=== PATIENT | male | born 1970 | race African-American/Black ===

== ENCOUNTER 2018-01-15 13:59 | Emergency (ER) | payer OTHER ==
[2018-01-15] MEDS ORDERED: PSEUDOEPHEDRINE HCL 3 MG/1 ML SYRUP 60 ML PO ONE (14:59)
[2018-01-15] MEDS ORDERED: MECLIZINE HCL 25 MG TABLET PO ONE (14:59)
--- NOTE | 2018-01-15 15:17 | ER Document Report ---
ED General - General Chief Complaint: Syncope Stated Complaint: LIGHT HEADED, DIZZY Time Seen by Provider: 01/15/18 14:31 Mode of Arrival: Ambulatory Information source: Patient Notes: 47-year-old male with hypothyroid, asthma presents via private vehicle from work after he became dizzy while bending forward. Patient states that he has had 3 episodes of dizziness which he describes as the room spinning anytime he bends forward. Patient states dizziness lasts approximately 10-20 seconds and resolves when seated. Dizziness is worse when laying on his right side. Denies any preceding shortness of breath, chest pain, palpitations. He does admit to recent upper respiratory infection, sinus congestion, ear fullness. Patient denies prior similar symptoms. Patient states that while at work today he bent forward to pick something up became dizzy stumbled and fell forward onto his hands and knees. He denies any loss of consciousness. TRAVEL OUTSIDE OF THE [place] IN LAST 30 DAYS: No - HPI Onset: Just prior to arrival Quality of pain: No pain Associated symptoms: Earache, Sinus pain/drainage. denies: Chest pain, Nonproductive cough, Productive cough, Nausea, Vomiting, Shortness of breath Exacerbated by: Other - Bending forward Relieved by: Remaining still Similar symptoms previously: No Recently seen / treated by doctor: No - Related Data Allergies/Adverse Reactions: No Known Allergies Allergy (Verified 01/15/18 14:00) Past Medical History - General Information source: Patient - Social History Smoking Status: Never Smoker Frequency of alcohol use: Occasional Drug Abuse: None Lives with: Spouse/Significant other Family History: Reviewed & Not Pertinent Patient has suicidal ideation: No Patient has homicidal ideation: No Pulmonary Medical History: Reports: Hx Asthma Renal/ Medical History: Denies: Hx Peritoneal Dialysis Review of Systems - Review of Systems Notes: REVIEW OF SYSTEMS: CONSTITUTIONAL : Denies fever, chills, or sweats. Denies recent illness. Denies weight loss, recent hospitalizations. EENT: Denies visula changes, eye pain. Denies sore throat, oral lesions, difficulty swallowing. CARDIOVASCULAR: Denies chest pain. Denies palpitations or racing or irregular heart beat. Denies lower extremity edema. RESPIRATORY: Denies cough, cold, or chest congestion. Denies shortness of breath, difficulty breathing, or wheezing. GASTROINTESTINAL: Denies abdominal pain or distention. Denies nausea, vomiting , or diarrhea. Denies blood in vomitus, stools, or per rectum. Denies black, tarry stools. Denies constipation. GENITOURINARY: Denies difficulty urinating, painful urination, burning, frequency, blood in urine, or vaginal discharge. MUSCULOSKELETAL: Denies back or neck pain or stiffness. Denies joint pain or swelling. SKIN: Denies rash, lesions or sores. HEMATOLOGIC : Denies easy bruising or bleeding. LYMPHATIC: Denies swollen, enlarged glands. NEUROLOGICAL: Denies confusion or altered mental status. Denies passing out or loss of consciousness. Denies headache. Denies weakness or paralysis or loss of use of either side. Denies problems with gait or speech. Denies sensory loss, numbness, or tingling. Denies seizures. PSYCHIATRIC: Denies anxiety or stress. Denies depression, suicidal ideation, or homicidal ideation. Physical Exam - Vital signs Vitals: Temp Pulse Resp BP Pulse Ox 98.2 F 83 16 141/78 H 98 01/15/18 14:14 01/15/18 14:14 01/15/18 14:14 01/15/18 14:14 01/15/18 14:14 - Notes Notes: PHYSICAL EXAMINATION: GENERAL: Well-appearing, well-nourished and in no acute distress. HEAD: Atraumatic, normocephalic. EYES: Pupils equal round and reactive to light, extraocular movements intact, sclera anicteric, conjunctiva are normal. Right sided nystagmus ENT: Nares patent, oropharynx clear without exudates. Moist mucous membranes. NECK: Normal range of motion, supple without lymphadenopathy LUNGS: Breath sounds clear to auscultation bilaterally and equal. No wheezes rales or rhonchi. HEART: Regular rate and rhythm without murmurs ABDOMEN: Soft, nontender, nondistended abdomen. No guarding, no rebound. No masses appreciated. Musculoskeletal: Normal range of motion, no pitting or edema. No cyanosis. NEUROLOGICAL: Cranial nerves grossly intact. Normal speech, normal gait. Normal sensory, motor exams PSYCH: Normal mood, normal affect. SKIN: Warm, Dry, normal turgor, no rashes or lesions noted. Course - Re-evaluation Re-evalutation: 01/15/18 15:19 47-year-old male with hypothyroid, asthma presents via private vehicle from work after he became dizzy while bending forward. Patient states that he has had 3 episodes of dizziness which he describes as the room spinning anytime he bends forward. Patient states dizziness lasts approximately 10-20 seconds and resolves when seated. Dizziness is worse when laying on his right side. Denies any preceding shortness of breath, chest pain, palpitations. He does admit to recent upper respiratory infection, sinus congestion, ear fullness. Patient was seen by myself upon arrival. Vital signs were reviewed. Patient is afebrile, normotensive and not hypoxic. Patient does not appear toxic or dehydrated. They are in no acute distress. Previous medical records and nursing notes reviewed. Significant findings include a right sided nystagmus and reproducible symptoms with rapid head movement. Patient was administered meclizine. EKG was obtained which showed the patient to be in normal sinus rhythm at a rate of 76 with a QRS of 96 and a QTC of 437. On reevaluation patient states his symptoms have resolved. He ambulates easily without symptoms. I had the patient bent forward and touch the ground to see if symptoms returned and they did not. Patient states he is feeling much better. Patient's exam and history are consistent with benign positional vertigo. Patient provided the opportunity to ask questions, and express concerns. Discharge instructions discussed. Patient is agreeable with discharge home. Return indications explained and discussed with the patient who displays understanding. Patient encouraged to return to the emergency department immediately with any concerns. After performing a Medical Screening Examination , I estimate there is LOW risk for INTRACRANIAL HEMORRHAGE, ISCHEMIC CVA, MALIGNANT DYSRHYTHMIA, ACUTE CORONARY SYNDROME, MENINGITIS, PULMONARY EMBOLISM, or SEPSIS thus I consider the discharge disposition reasonable. I have reevaluated this patient multiple times and no significant life threatening changes are noted. The patient and I have discussed the diagnosis and risks, and we agree with discharging home with close follow-up with the understanding that symptoms and presentations can change. We also discussed returning to the Emergency Department immediately if new or worsening symptoms occur. We have discussed the symptoms which are most concerning (e.g., changing or worsening pain, weakness, vomiting, fever) that necessitate immediate return. 01/15/18 15:57 - Vital Signs Vital signs: Temp Pulse Resp BP Pulse Ox 98.2 F 83 12 122/78 97 01/15/18 14:14 01/15/18 14:14 01/15/18 15:01 01/15/18 15:01 01/15/18 15:01 - EKG Interpretation by Me EKG shows normal: Sinus rhythm Rate: Normal Rhythm: NSR When compared to previous EKG there are: Previous EKG unavailable Discharge - Discharge Clinical Impression: BPPV (benign paroxysmal positional vertigo) Qualifiers: Laterality: right Qualified Code(s): H81.11 - Benign paroxysmal vertigo, right ear Condition: Good Disposition: HOME, SELF-CARE Instructions: Vertigo ([facility]) Additional Instructions: Follow up with your physician tomorrow for further care or return to the ED IMMEDIATELY if symptoms worsen or new concerns occur. If you cannot afford to follow up with your primary care physician a list of low cost clinics have been provided at the end of your discharge papers as well. Forms: Return to Work Referrals: MELYSSA RUCKER MD [NO LOCAL MD] - Follow up as needed
[2018-01-15 16:20] VITALS: BP 126/80
--- NOTE | 2018-01-15 17:29 | EKG REPORT ---
SEVERITY:- NORMAL ECG - SINUS RHYTHM : Confirmed by: Marlon Phelps 15-Jan-2018 17:28:17
== END 2018-01-15 16:18 | disposition home or self-care (01) ==
LOC: ER 13:59
DX: H81.11 Benign paroxysmal vertigo, right ear (principal); J45.909 Unspecified asthma, uncomplicated; H92.09 Otalgia, unspecified ear; R09.81 Nasal congestion
CPT/HCPCS: 93005; 99284; 93010; J3490

== ENCOUNTER 2019-02-18 06:05 | Emergency (ER) | payer OTHER ==
[2019-02-18] MEDS ORDERED: IPRATROPIUM/ALBUTEROL 0.5-2.5 MG/3 ML AMPUL NEB ONE (08:47)
--- NOTE | 2019-02-18 09:02 | ER Document Report ---
HPI - HPI Patient complains to provider of: cough Time Seen by Provider: 02/18/19 08:07 Pain Level: 4 Context: Very pleasant 48-year-old male with seasonal allergies and asthma presents to the emergency department with chief complaint of persistent cough x1 area patient says that it is been keeping him up at night and he "just needs some rest". He says he has flareups around this time every year but this year is just not been able to nip it in the bud. He denies any fevers or chills, complains of postnasal drip, states his cough is worse at night, denies any earache or sore throat, denies any headache or vision changes, denies neck st iffness, denies any shortness of breath or acute dyspnea on exertion, denies chest pain, denies any nausea or vomiting, denies abdominal pain, no other complaints. - RESPIRATORY Respiratory: REPORTS: Coughing Past Medical History - Social History Smoking Status: Never Smoker Family History: Reviewed & Not Pertinent Patient has suicidal ideation: No Patient has homicidal ideation: No Pulmonary Medical History: Reports: Hx Asthma Renal/ Medical History: Denies: Hx Peritoneal Dialysis Vertical Provider Document - CONSTITUTIONAL Notes: PHYSICAL EXAMINATION: Reviewed vital signs and charting by RN GENERAL: Alert, interacts well. No acute distress. HEAD: Normocephalic, atraumatic. EYES: Pupils equal and round. Extraocular movements intact. ENT: Oral mucosa moist, tongue midline. NECK: Full range of motion. Trachea midline. LUNGS: Clear to auscultation bilaterally, bibasilar wheezing, no rales or rhonchi. No respiratory distress. HEART: Regular rate and rhythm. No murmur ABDOMEN: soft, non-tender. No distention. Bowel sounds present EXTREMITIES: Moves all 4 extremities spontaneously. No edema, No cyanosis. PSYCH: Normal affect, normal mood. SKIN: Warm, dry, normal turgor. No rashes or lesions noted. - INFECTION CONTROL TRAVEL OUTSIDE OF THE [place] IN LAST 30 DAYS: No Course - Re-evaluation Re-evalutation: 02/18/19 09:47 Very well-appearing and afebrile. Patient presents with a mild exacerbation of their baseline asthma. Mild wheezing at time of presentation but vitals do not show significant hypoxemia or tachypnea. No retractions. Patient did clinically improve after receiving nebulizers here in the emergency department. Patient able to ambulate without any respiratory distress. Based on patient's overall reassuring assessment, I believe they are stable for outpatient management. I do not suspect an acute alternative pathology at this time based on history and exam including acute pulmonary embolus, ACS, pneumothorax, or aortic dissection. At this time will discharge with return precautions and follow-up recommendations. Verbal discharge instructions given a the bedside and opportunity for questions given. Medication warnings reviewed. Patient is in agreement with this plan and has verbalized understanding of return precautions and the need for primary care follow-up in the next 24-72 hours. - Vital Signs Vital signs: Temp Pulse Resp BP Pulse Ox 98.1 F 91 15 126/70 H 97 02/18/19 06:10 02/18/19 06:10 02/18/19 06:10 02/18/19 06:10 02/18/19 06:10 Discharge - Discharge Clinical Impression: Cough Condition: Good Disposition: HOME, SELF-CARE Additional Instructions: Your symptoms are likely due to a viral infection and/or allergies. The only treatment at this time is supportive care including drinking plenty of fluids, Tylenol 1000 mg every 6 hours and/or ibuprofen 600 mg every 6 hours, as well as the prescription for the cough medicine that I am sending you home with. Your symptoms will likely last for 10-14 days, and sometimes up to a month. Please return to the emergency department immediately if you become confused, have persistent vomiting, pass out, have severe headache, or have any other symptoms that are worrisome to you. Follow-up with your primary care doctor in the next several days. Prescriptions: Hydrocodone Bit/Homatropine [Hycodan Syrup 5-1.5 mg/5 ml Ud Cup] 5 ml PO Q4HP PRN #120 ml PRN Reason: Referrals: [facility] [Primary [facility]] - Follow up as needed
[2019-02-18 09:14] VITALS: BP 120/74
== END 2019-02-18 09:17 | disposition home or self-care (01) ==
LOC: ER 06:05
DX: R05 Cough (principal); R06.2 Wheezing
CPT/HCPCS: 94640; 99283; J7620